=== PATIENT | female | born 1935 | race Hispanic/Latino ===

== ENCOUNTER 2016-05-07 10:36 | Outpatient (CLI) | payer MEDICARE ==
[2016-05-07 10:49] LABS: Bilirubin,Urine NEG (Negative); Blood,Urine MOD (Negative); Ketones,Urine NEG (Negative); Leukocyte Esterase,Urine MOD (Negative); Nitrite,Urine NEG (Negative); Urobilinogen,Urine < 2.0 mg/dL (<2.0)
== END 2016-05-07 10:37 | disposition home or self-care (01) ==
LOC: LABHHL 10:36
PROVIDERS: ATTEND Urology
DX: N39.0 Urinary tract infection, site not specified (principal)
CPT/HCPCS: 81001; 87086